=== PATIENT | male | born 1960 | race Caucasian/White ===

== ENCOUNTER 2020-07-25 09:09 | Emergency (ER) | payer OTHER ==
[~2020-07-25] VITALS: Ht 177.8 cm; Wt 86.6 kg
== END 2020-07-25 10:27 | disposition home or self-care (01) ==
LOC: ER 09:09
DX: S61.421A Laceration with foreign body of right hand, initial encounter (principal); W25.XXXA Contact with sharp glass, initial encounter; Y93.G1 Activity, food preparation and clean up; Y92.010 Kitchen of single-family (private) house as the place of occurrence of the external cause; Y99.8 Other external cause status

== ENCOUNTER 2022-07-04 13:37 | Emergency (ER) | payer OTHER ==
[~2022-07-04] VITALS: Ht 180.3 cm; Wt 86.2 kg
[2022-07-04] MEDS ORDERED: BUPROPION XL450 MG (14:45)
== END 2022-07-04 18:54 | disposition home or self-care (01) ==
LOC: ER 13:37
DX: A90 Dengue fever [classical dengue] (principal); Z20.822 Contact with and (suspected) exposure to COVID-19; R51.9 Headache, unspecified